=== PATIENT | female | born 1970 | race Caucasian/White ===

== ENCOUNTER 2019-04-05 10:00 | Observation (INO) | payer SELFPAY ==
[2019-04-05] MEDS ORDERED: Zofran 4 MG/2 ML VIAL IV ONE ×2 (10:39→12:14)
[2019-04-05] MEDS ORDERED: MORPHINE SULFATE 4 MG INJ IV ONE ×2 (10:39→12:13)
[2019-04-05] MEDS ORDERED: Sodium Chloride 0.9% 1000 ML 1,000 ML IV STA (10:39)
[2019-04-05] MEDS ORDERED: Sodium Chloride 0.9% 1000 ML 1,000 ML ONE (10:44)
[2019-04-05] MEDS ORDERED: MORPHINE SULFATE 4 MG INJ ONE ×2 (10:44→12:19)
[2019-04-05] MEDS ORDERED: Zofran 4 MG/2 ML VIAL ONE ×2 (10:44→12:19)
[2019-04-05 11:07] LABS: Appearance CLEAR (CLEAR); Bacteria FEW /HPF (NEGATIVE); Bilirubin NEGATIVE (NEGATIVE); Blood LARGE Ery/ul (0-5); Epithelial Cells FEW /HPF (FEW); Glucose NEGATIVE (NEGATIVE); Ketones NEGATIVE (NEGATIVE); Leukocyte Esterase TRACE (NEGATIVE); Mucus SLIGHT /HPF (NEGATIVE); Nitrite NEGATIVE (NEGATIVE); Protein,Urine Dip 30 (Negative); Specific Gravity 1.019 (1.005-1.025); Urobilinogen NEGATIVE mg/dL (0-1)
[2019-04-05 11:08] LABS: Absolute Neutrophil Ct (ANC) 7.85 (1.4-6.9); BASOPHIL % 0.3 % (0.0-0.4); Basophil (Absolute #) 0.03 (0-0.4); Eosinophil % 0.8 % (0.00-5.0); Eosinophil (Absolute #) 0.08 (0-0.5); Hematocrit 42.5 % (35-47); Hemoglobin 14.1 gm/dl (12.0-16.0); Lymphocyte (Absolute #) 1.63 (1.0-4.6); Lymphocytes % 16.4 % (24.0-44.0); Mean Cell Volume 89.3 fl (78-100); Mean Corpuscular Hemoglobin 29.6 pg (26-32); Mean Corpuscular Hgb Concent. 33.2 g/dl (32-36); Mean Platelet Volume 8.4 fl (7.5-11.0); Monocyte (Absolute #) 0.37 (0.0-1.3); Monocytes % 3.7 % (0.0-12.0); Neutrophil % 78.8 % (36.0-66.0); Platelet Count 302 K/mm3 (150-450); Red Blood Count 4.76 M/mm3 (4.1-5.4)
--- NOTE | 2019-04-05 11:08 | ERPHSYRPT ---
- History of Present Illness Time Seen by Provider: 04/05/19 10:22 Historian: patient Exam Limitations: no limitations Patient Subjective Stated Complaint: pt here for diffuse abd pain, she states she has hx of a gallstone. she has not seen a surgeon for this problem. no fever , n/v Triage Nursing Assessment: pt alert, resp easy, skin w/d/p.abd soft, walked in holding stomach Physician History: Patient is a 49-year-old female who presents to our ED with epigastric and right upper quadrant pain that occurred this morning. Pain described as an ache that radiates across her epigastrium. Pain is moderate in intensity. No specific worsening or improving factors. No associated trauma. No fever. Positive nausea and vomiting. Emesis is nonbloody nonbilious. Timing/Duration: today Activities at Onset: none Quality: aching Abdominal Pain Onset Location: RUQ, LUQ, epigastric Pain Radiation: epigastric Severity of Pain-Max: moderate Severity of Pain-Current: moderate Allergies/Adverse Reactions: No Known Drug Allergies Allergy (Unverified 04/05/19 10:16) Home Medications: No Reportable Medications [No Reported Medications] 04/05/19 [History] Hx Influenza Vaccination/Date Given: Yes Hx Pneumococcal Vaccination/Date Given: No Immunizations Up to Date: Yes - Review of Systems Constitutional: No Fever, No Chills Eyes: No Symptoms Ears, Nose, & Throat: No Symptoms Respiratory: No Cough, No Dyspnea Cardiac: No Chest Pain, No Edema, No Syncope Abdominal/Gastrointestinal: Abdominal Pain, Nausea, Vomiting, No Diarrhea, No Hematemesis Genitourinary Symptoms: No Dysuria Musculoskeletal: No Back Pain, No Neck Pain Skin: No Rash Neurological: No Dizziness, No Focal Weakness, No Sensory Changes Psychological: No Symptoms Endocrine: No Symptoms Hematologic/Lymphatic: No Symptoms Immunological/Allergic: No Symptoms All Other Systems: Reviewed and Negative - Past Medical History Pertinent Past Medical History: Yes Other Medical History: gallstone - Past Surgical History Past Surgical History: Yes Female Surgical History: Section - Social History Smoking Status: Never smoker Exposure to second hand smoke: No Drug Use: none Patient Lives Alone: No - Female History Hx Last Menstrual Period: now Hx Now: No - Nursing Vital Signs Nursing Vital Signs: Initial Vital Signs Temperature 97.0 F 04/05/19 10:12 Pulse Rate 78 04/05/19 10:12 Respiratory Rate 18 04/05/19 10:12 Blood Pressure 146/85 04/05/19 10:12 O2 Sat by Pulse Oximetry 98 04/05/19 10:12 Pain Scale Pain Intensity 6 - Physical Exam General Appearance: no apparent distress, alert Eye Exam: PERRL/EOMI, eyes nml inspection Ears, Nose, Throat Exam: normal ENT inspection, pharynx normal, moist mucous membranes Neck Exam: normal inspection, non-tender, supple, full range of motion Respiratory Exam: normal breath sounds, lungs clear, No respiratory distress Cardiovascular Exam: regular rate/rhythm, normal heart sounds Gastrointestinal/Abdomen Exam: soft, tenderness, No mass, No pulsatile mass, No rebound, No organomegaly, No splenomegaly Pelvic Exam: not done Back Exam: normal inspection, normal range of motion, No CVA tenderness, No vertebral tenderness Extremity Exam: normal inspection, normal range of motion, pelvis stable Neurologic Exam: alert, oriented x 3, cooperative, normal mood/affect, nml cerebellar function, sensation nml, No motor deficits Skin Exam: normal color, warm, dry Lymphatic Exam: adenopathy SpO2 Interpretation: normal SpO2: 97 O2 Delivery: Room Air - Course Nursing assessment & vital signs reviewed: Yes EKG Interpreted by Me: RATE, Left [place] Deviation, NORMAL INTERVALS - Radiology Ultrasound Exam Gallbladder Ultrasound: tele radiology report, negative Ordered Tests: Active Orders 24 hr Category Date Time Status Up With Assistance ROUTINE Activity 04/05/19 15:58 Active Code Status Order ROUTINE Care 04/05/19 15:58 Active EKG-ER Only STAT Care 04/05/19 10:39 Completed IV Care Q6H Care 04/05/19 15:58 Active IV Insertion STAT Care 04/05/19 10:[address] in Observation ROUTINE Care 04/05/19 15:58 Active Clear Liquid Diet 04/05/19 Dinner Completed ABDOMEN AND PELVIS W CONTRAST [CT] Stat Exams 04/05/19 10:40 Completed GALLBLADDER [US] Stat Exams 04/05/19 10:40 Completed CBC W DIFF AM.LAB Lab 04/06/19 05:06 Completed CBC W DIFF Stat Lab 04/05/19 10:55 Completed CMP AM.LAB Lab 04/06/19 05:06 Completed CMP Stat Lab 04/05/19 10:55 Completed CULTURE,URINE Stat Lab 04/05/19 10:43 Received LIPASE Stat Lab 04/05/19 10:55 Completed TROPONIN Q3H Lab 04/05/19 10:55 Completed TROPONIN Q3H Lab 04/05/19 13:40 Completed TROPONIN Q3H Lab 04/05/19 17:45 Completed TROPONIN Q3H Lab 04/05/19 20:06 Completed TROPONIN Q3H Lab 04/05/19 23:09 Completed UA W/RFX UR CULTURE Stat Lab 04/05/19 10:43 Completed Medication Summary Generic Name Dose Route Start Last Admin Trade Name Freq PRN Reason Stop Dose Admin Sodium Chloride 1,000 mls @ 100 mls/hr 04/05/19 15:58 04/06/19 02:40 Sodium Chloride 0.9% 1000 Ml IV 05/05/19 15:57 100 mls/hr .Q10H MONA Administration Morphine Sulfate 4 mg 04/05/19 15:58 Morphine Sulfate 4 Mg Inj IV 04/10/19 15:57 Q4H PRN PRN PAIN Ondansetron HCl 4 mg 04/05/19 17:24 Zofran 4 Mg/2 Ml Vial IV 05/05/19 17:23 Q4H PRN PRN NAUSEA/VOMITING Pantoprazole Sodium 40 mg 04/06/19 10:00 Protonix 40 Mg Iv IV 05/06/19 09:59 Q24H10 MONA Promethazine HCl 12.5 mg 04/05/19 17:23 04/05/19 18:46 Phenergan 25 Mg Inj IV 05/05/19 17:22 12.5 mg Q6H PRN PRN Administration NAUSEA/VOMITING Discontinued Medications Generic Name Dose Route Start Last Admin Trade Name Freq PRN Reason Stop Dose Admin Hydromorphone HCl 1 mg 04/05/19 14:12 04/05/19 14:45 Hydromorphone 1 Mg/Ml Ampule IV 04/05/19 14:13 1 mg STAT ONE Administration Hydromorphone HCl Confirm 04/05/19 14:38 Hydromorphone 1 Mg/Ml Ampule Administered 04/05/19 14:39 Dose 1 mg .ROUTE .STK-MED ONE Sodium Chloride 1,000 mls @ 999 mls/hr 04/05/19 10:39 04/05/19 12:55 Sodium Chloride 0.9% 1000 Ml IV 04/05/19 11:39 Infused .Q1H1M STA Infusion Sodium Chloride Confirm 04/05/19 10:44 Sodium Chloride 0.9% 1000 Ml Administered 04/05/19 10:45 Dose 1,000 mls @ ud .ROUTE .STK-MED ONE Metoclopramide HCl 10 mg 04/05/19 14:12 04/05/19 14:45 Reglan 10 Mg/2 Ml IV 04/05/19 14:13 10 mg STAT ONE Administration Metoclopramide HCl Confirm 04/05/19 14:39 Reglan 10 Mg/2 Ml Administered 04/05/19 14:40 Dose 10 mg .ROUTE .STK-MED ONE Morphine Sulfate 4 mg 04/05/19 10:39 04/05/19 10:47 Morphine Sulfate 4 Mg Inj IV 04/05/19 10:40 4 mg STAT ONE Administration Morphine Sulfate Confirm 04/05/19 10:44 Morphine Sulfate 4 Mg Inj Administered 04/05/19 10:45 Dose 4 mg .ROUTE .STK-MED ONE Morphine Sulfate 4 mg 04/05/19 12:13 04/05/19 12:23 Morphine Sulfate 4 Mg Inj IV 04/05/19 12:14 4 mg STAT ONE Administration Morphine Sulfate Confirm 04/05/19 12:19 Morphine Sulfate 4 Mg Inj Administered 04/05/19 12:20 Dose 4 mg .ROUTE .STK-MED ONE Ondansetron HCl 4 mg 04/05/19 10:39 04/05/19 10:47 Zofran 4 Mg/2 Ml Vial IV 04/05/19 10:40 4 mg STAT ONE Administration Ondansetron HCl Confirm 04/05/19 10:44 Zofran 4 Mg/2 Ml Vial Administered 04/05/19 10:45 Dose 4 mg .ROUTE .STK-MED ONE Ondansetron HCl 4 mg 04/05/19 12:14 04/05/19 12:21 Zofran 4 Mg/2 Ml Vial IV 04/05/19 12:15 4 mg STAT ONE Administration Ondansetron HCl Confirm 04/05/19 12:19 Zofran 4 Mg/2 Ml Vial Administered 04/05/19 12:20 Dose 4 mg .ROUTE .STK-MED ONE Pantoprazole Sodium 40 mg 04/05/19 14:52 04/05/19 15:00 Protonix 40 Mg Iv IV 04/05/19 14:53 40 mg STAT ONE Administration Pantoprazole Sodium Confirm 04/05/19 14:57 Protonix 40 Mg Iv Administered 04/05/19 14:58 Dose 40 mg IV .STK-MED ONE Lab/Rad Data: Laboratory Result Diagrams 04/05/19 10:55 04/05/19 10:55 Laboratory Results 04/05/19 04/05/19 04/05/19 Range/Units 13:40 10:55 10:55 WBC (4.0-10.5) K/mm3 RBC (4.1-5.4) M/mm3 Hgb (12.0-16.0) gm/dl Hct (35-47) % MCV (78-100) fl MCH (26-32) pg MCHC (32-36) g/dl RDW (11.5-14.0) % Plt Count (150-450) K/mm3 MPV (7.5-11.0) fl Gran % (36.0-66.0) % Eos # (Auto) (0-0.5) Absolute Lymphs (auto) (1.0-4.6) Absolute Monos (auto) (0.0-1.3) Lymphocytes % (24.0-44.0) % Monocytes % (0.0-12.0) % Eosinophils % (0.00-5.0) % Basophils % (0.0-0.4) % Absolute Granulocytes (1.4-6.9) Basophils # (0-0.4) Sodium 141 (137-145) mmol/L Potassium 4.1 (3.5-5.1) mmol/L Chloride 103 (98-107) mmol/L Carbon Dioxide 31 H (22-30) mmol/L Anion Gap 11.2 (5-15) MEQ/L BUN 18 H (7-17) mg/dL Creatinine 0.55 (0.52-1.04) mg/dL Estimated GFR > 60.0 ML/MIN Glucose 105 (74-106) mg/dL Calcium 9.5 (8.4-10.2) mg/dL Total Bilirubin 0.80 (0.2-1.3) mg/dL AST 20 (14-36) U/L ALT 11 (0-35) U/L Alkaline Phosphatase 88 (38-126) U/L Troponin I < 0.012 < 0.012 (0.000-0.034) ng/mL Serum Total Protein 8.6 H (6.3-8.2) g/dL Albumin 4.6 (3.5-5.0) g/dL Lipase 21 L (23-300) U/L Urine Color (YELLOW) Urine Appearance (CLEAR) Urine pH (5-6) Ur Specific [place] (1.005-1.025) Urine Protein (Negative) Urine Ketones (NEGATIVE) Urine Blood (0-5) [place]/ul Urine Nitrite (NEGATIVE) Urine Bilirubin (NEGATIVE) Urine Urobilinogen (0-1) mg/dL Ur Leukocyte Esterase (NEGATIVE) Urine WBC (Auto) (0-5) /HPF Urine RBC (Auto) (0-2) /HPF U Epithel Cells (Auto) (FEW) /HPF Urine Bacteria (Auto) (NEGATIVE) /HPF Urine Mucus (Auto) (NEGATIVE) /HPF Urine Culture Reflexed (NO) Urine Glucose (NEGATIVE) mg/dL 04/05/19 04/05/19 Range/Units 10:55 10:43 WBC 10.0 (4.0-10.5) K/mm3 RBC 4.76 (4.1-5.4) M/mm3 Hgb 14.1 (12.0-16.0) gm/dl Hct 42.5 (35-47) % MCV 89.3 (78-100) fl MCH 29.6 (26-32) pg MCHC 33.2 (32-36) g/dl RDW 14.0 (11.5-14.0) % Plt Count 302 (150-450) K/mm3 MPV 8.4 (7.5-11.0) fl Gran % 78.8 H (36.0-66.0) % Eos # (Auto) 0.08 (0-0.5) Absolute Lymphs (auto) 1.63 (1.0-4.6) Absolute Monos (auto) 0.37 (0.0-1.3) Lymphocytes % 16.4 L (24.0-44.0) % Monocytes % 3.7 (0.0-12.0) % Eosinophils % 0.8 (0.00-5.0) % Basophils % 0.3 (0.0-0.4) % Absolute Granulocytes 7.85 H (1.4-6.9) Basophils # 0.03 (0-0.4) Sodium (137-145) mmol/L Potassium (3.5-5.1) mmol/L Chloride (98-107) mmol/L Carbon Dioxide (22-30) mmol/L Anion Gap (5-15) MEQ/L BUN (7-17) mg/dL Creatinine (0.52-1.04) mg/dL Estimated GFR ML/MIN Glucose (74-106) mg/dL Calcium (8.4-10.2) mg/dL Total Bilirubin (0.2-1.3) mg/dL AST (14-36) U/L ALT (0-35) U/L Alkaline Phosphatase (38-126) U/L Troponin I (0.000-0.034) ng/mL Serum Total Protein (6.3-8.2) g/dL Albumin (3.5-5.0) g/dL Lipase (23-300) U/L Urine Color SHERIE (YELLOW) Urine Appearance CLEAR (CLEAR) Urine pH 7.0 (5-6) Ur Specific [place] 1.019 (1.005-1.025) Urine Protein 30 (Negative) Urine Ketones NEGATIVE (NEGATIVE) Urine Blood LARGE (0-5) [place]/ul Urine Nitrite NEGATIVE (NEGATIVE) Urine Bilirubin NEGATIVE (NEGATIVE) Urine Urobilinogen NEGATIVE (0-1) mg/dL Ur Leukocyte Esterase TRACE (NEGATIVE) Urine WBC (Auto) 3-5 (0-5) /HPF Urine RBC (Auto) >101 (0-2) /HPF U Epithel Cells (Auto) FEW (FEW) /HPF Urine Bacteria (Auto) FEW (NEGATIVE) /HPF Urine Mucus (Auto) SLIGHT (NEGATIVE) /HPF Urine Culture Reflexed YES (NO) Urine Glucose NEGATIVE (NEGATIVE) mg/dL - Progress Counseled pt/family regarding: lab results, diagnosis, rad results - Departure Departure Disposition: Observation Clinical Impression: Hematuria Condition: Stable Critical Care Time: No
[2019-04-05 11:13] LABS: RBC >101 /HPF (0-2)
--- NOTE | 2019-04-05 11:13 | XRAY ---
Indication: Pancreatitis. Two-dimensional gallbladder sonogram performed. Comparison: None Gallbladder normally distended without gallstones, wall thickening, or pericholecystic fluid. Common bile duct measures 3.7 mm. No intrahepatic biliary distention. Remaining visualized portions of the liver, pancreas, and right kidney appear sonographically unremarkable. Right kidney measures 11.9 cm in length. No ascites. Impression: Negative gallbladder sonogram.
[2019-04-05 11:16] LABS: ALBUMIN 4.6 g/dL (3.5-5.0); ALKALINE PHOSPHATASE 88 U/L (38-126); ANION GAP 11.2 MEQ/L (5-15); BLOOD UREA NITROGEN 18 mg/dL (7-17); CHLORIDE 103 mmol/L (98-107); Calcium 9.5 mg/dL (8.4-10.2); Carbon Dioxide 31 mmol/L (22-30); Creatinine 1 0.55 mg/dL (0.52-1.04); Glucose 105 mg/dL (74-106); LIPASE 21 U/L (23-300); Potassium 4.1 mmol/L (3.5-5.1); SGOT/AST 20 U/L (14-36); SGPT/ALT 11 U/L (0-35); SODIUM 141 mmol/L (137-145); Total Protein 8.6 g/dL (6.3-8.2)
--- NOTE | 2019-04-05 12:06 | XRAY ---
Indication: Abdomen pain, nausea, and vomiting. Pancreatitis. Multiple contiguous axial images obtained through the abdomen and pelvis using 80 cc Isovue 370 contrast only. Comparison: None Lung bases are clear. Heart is not enlarged. Noncontrasted stomach and bowel loops appear nonobstructed. Normal appendix. No free fluid/air. Left mid abdomen demonstrates tiny mesenteric nodes with minimal mesenteric stranding favoring mesenteric adenitis. 2.2 cm right ovary cyst. Tiny calcified splenic granulomas. Remaining liver, gallbladder, pancreas, spleen, adrenal glands, kidneys, ureters, bladder, uterus, and aorta appear normal in CT appearance and attenuation. No pathologic retroperitoneal lymphadenopathy. Osseous structures intact. Impression: 1. Left midabdomen tiny mesenteric nodes with minimal stranding favoring mesenteric adenitis. 2. 2.2 cm right ovary cyst and evidence for old granulomatous disease. 3. Remaining CT abdomen/pelvis with contrast exam is negative.
[2019-04-05] MEDS ORDERED: Reglan 10 MG/2 ML IV ONE (14:12)
[2019-04-05] MEDS ORDERED: Hydromorphone 1 mg/ml Ampule IV ONE (14:12)
[2019-04-05] MEDS ORDERED: Hydromorphone 1 mg/ml Ampule ONE (14:38)
[2019-04-05] MEDS ORDERED: Reglan 10 MG/2 ML ONE (14:39)
[2019-04-05] MEDS ORDERED: PROTONIX 40 MG IV IV ONE ×2 (14:52→14:57)
[2019-04-05] MEDS ORDERED: MORPHINE SULFATE 4 MG INJ IV PRN (15:58)
[2019-04-05] MEDS ORDERED: Phenergan 25 MG INJ IV PRN (17:23)
[2019-04-05] MEDS ORDERED: Zofran 4 MG/2 ML VIAL IV PRN (17:24)
[2019-04-05] MEDS: Sodium Chloride 0.9% 1000 ML 1,000 ML IV SCH (17:26)
--- NOTE | 2019-04-05 17:52 | PCM.HP ---
History of Present Illness - Chief Complaint Chief Complaint: abd pain. n/v History of Present Illness: is a 49 year old female pt of [facility] in [place] who came to ER with epigastric pain. She's been having that pain for 2 months, at 2 /10, radiates to umbilicus, but last night it got to 10/10 and she had vomiting (of food and mucous). Her last po intake was 4 pm. Also c/o cough x 1 wk. no fever. - Review of Systems Constitutional: No Fever Respiratory: Cough Abdominal/Gastrointestinal: Abdominal Pain, Nausea, Vomiting, Appetite Changes Psychological: No Suicidal Ideations, No Homicidal Ideations All Other Systems: Reviewed and Negative Medications & Allergies Home Medications: Home Medication List No Reportable Medications [No Reported Medications] 04/05/19 [History Confirmed 04/05/19] Allergies/Adverse Reactions: Allergies Allergy/AdvReac Type Severity Reaction Status Date / Time No Known Drug Allergies Allergy Unverified 04/05/19 10:16 - Past Medical History Past Medical History: Yes Neurological History: No Pertinent History ENT History: No Pertinent History Cardiac History: Other Respiratory History: No Pertinent History Endocrine Medical History: No Pertinent History Musculoskelatal History: Arthritis GI Medical History: Gallbladder Disease, Irritable Bowel History: No Pertinent History Pyscho-Social History: No Pertinent History Reproductive Disorders: No Pertinent History Comment: gallstone. heart murmer - Female History Hx Last Menstrual Period: now Are you now?: No - Past Surgical History Past Surgical History: Yes Neuro Surgical History: No Pertinent History Cardiac History: No Pertinent History Respiratory Surgery: No Pertinent History GI Surgical History: No Pertinent History Genitourinary Surgical Hx: No Pertinent History Musculskeletal Surgical Hx: No Pertinent History, Amputation Female Surgical History: Section - Social History Smoking Status: Former smoker Exposure to second hand smoke: No Alcohol: None Drug Use: none - Physical Exam Vital Signs: Vital Signs - 24 hr Temp Pulse Resp BP Pulse Ox 04/05/19 16:37 97.5 F 70 20 145/70 96 04/05/19 15:56 97.5 F 70 20 145/70 96 04/05/19 14:59 98.2 F 70 18 111/72 97 04/05/19 13:13 97.8 F 67 18 135/83 98 04/05/19 11:22 97 04/05/19 10:52 73 20 130/67 97 04/05/19 10:12 97.0 F 78 18 146/85 98 General Appearance: no apparent distress, alert Neurologic Exam: oriented x 3, cooperative Eye Exam: eyes nml inspection Ears, Nose, Throat Exam: moist mucous membranes Neck Exam: normal inspection, non-tender, No lymphadenopathy Respiratory Exam: normal breath sounds, lungs clear, No crackles/rales, No rhonchi, No wheezing Cardiovascular Exam: regular rate/rhythm, normal heart sounds, No murmur Gastrointestinal/Abdomen Exam: soft, tenderness (epigastrum), distention, No normal bowel sounds (hypoactive but present), No mass, No guarding, No rebound Extremity Exam: normal inspection, No pedal edema, No swelling Skin Exam: normal color, warm, dry, No rash Results - Labs Lab/Micro Results: Lab Results-Last 24 Hours 04/05/19 04/05/19 04/05/19 Range/Units 10:43 10:55 10:55 WBC 10.0 (4.0-10.5) K/mm3 RBC 4.76 (4.1-5.4) M/mm3 Hgb 14.1 (12.0-16.0) gm/dl Hct 42.5 (35-47) % MCV 89.3 (78-100) fl MCH 29.6 (26-32) pg MCHC 33.2 (32-36) g/dl RDW 14.0 (11.5-14.0) % Plt Count 302 (150-450) K/mm3 MPV 8.4 (7.5-11.0) fl Gran % 78.8 H (36.0-66.0) % Eos # (Auto) 0.08 (0-0.5) Absolute Lymphs (auto) 1.63 (1.0-4.6) Absolute Monos (auto) 0.37 (0.0-1.3) Lymphocytes % 16.4 L (24.0-44.0) % Monocytes % 3.7 (0.0-12.0) % Eosinophils % 0.8 (0.00-5.0) % Basophils % 0.3 (0.0-0.4) % Absolute Granulocytes 7.85 H (1.4-6.9) Basophils # 0.03 (0-0.4) Sodium 141 (137-145) mmol/L Potassium 4.1 (3.5-5.1) mmol/L Chloride 103 (98-107) mmol/L Carbon Dioxide 31 H (22-30) mmol/L Anion Gap 11.2 (5-15) MEQ/L BUN 18 H (7-17) mg/dL Creatinine 0.55 (0.52-1.04) mg/dL Estimated GFR > 60.0 ML/MIN Glucose 105 (74-106) mg/dL Calcium 9.5 (8.4-10.2) mg/dL Total Bilirubin 0.80 (0.2-1.3) mg/dL AST 20 (14-36) U/L ALT 11 (0-35) U/L Alkaline Phosphatase 88 (38-126) U/L Troponin I (0.000-0.034) ng/mL Serum Total Protein 8.6 H (6.3-8.2) g/dL Albumin 4.6 (3.5-5.0) g/dL Lipase 21 L (23-300) U/L Urine Color SHERIE (YELLOW) Urine Appearance CLEAR (CLEAR) Urine pH 7.0 (5-6) Ur Specific [place] 1.019 (1.005-1.025) Urine Protein 30 (Negative) Urine Ketones NEGATIVE (NEGATIVE) Urine Blood LARGE (0-5) [place]/ul Urine Nitrite NEGATIVE (NEGATIVE) Urine Bilirubin NEGATIVE (NEGATIVE) Urine Urobilinogen NEGATIVE (0-1) mg/dL Ur Leukocyte Esterase TRACE (NEGATIVE) Urine WBC (Auto) 3-5 (0-5) /HPF Urine RBC (Auto) >101 (0-2) /HPF U Epithel Cells (Auto) FEW (FEW) /HPF Urine Bacteria (Auto) FEW (NEGATIVE) /HPF Urine Mucus (Auto) SLIGHT (NEGATIVE) /HPF Urine Culture Reflexed YES (NO) Urine Glucose NEGATIVE (NEGATIVE) mg/dL 04/05/19 04/05/19 Range/Units 10:55 13:40 WBC (4.0-10.5) K/mm3 RBC (4.1-5.4) M/mm3 Hgb (12.0-16.0) gm/dl Hct (35-47) % MCV (78-100) fl MCH (26-32) pg MCHC (32-36) g/dl RDW (11.5-14.0) % Plt Count (150-450) K/mm3 MPV (7.5-11.0) fl Gran % (36.0-66.0) % Eos # (Auto) (0-0.5) Absolute Lymphs (auto) (1.0-4.6) Absolute Monos (auto) (0.0-1.3) Lymphocytes % (24.0-44.0) % Monocytes % (0.0-12.0) % Eosinophils % (0.00-5.0) % Basophils % (0.0-0.4) % Absolute Granulocytes (1.4-6.9) Basophils # (0-0.4) Sodium (137-145) mmol/L Potassium (3.5-5.1) mmol/L Chloride (98-107) mmol/L Carbon Dioxide (22-30) mmol/L Anion Gap (5-15) MEQ/L BUN (7-17) mg/dL Creatinine (0.52-1.04) mg/dL Estimated GFR ML/MIN Glucose (74-106) mg/dL Calcium (8.4-10.2) mg/dL Total Bilirubin (0.2-1.3) mg/dL AST (14-36) U/L ALT (0-35) U/L Alkaline Phosphatase (38-126) U/L Troponin I < 0.012 < 0.012 (0.000-0.034) ng/mL Serum Total Protein (6.3-8.2) g/dL Albumin (3.5-5.0) g/dL Lipase (23-300) U/L Urine Color (YELLOW) Urine Appearance (CLEAR) Urine pH (5-6) Ur Specific [place] (1.005-1.025) Urine Protein (Negative) Urine Ketones (NEGATIVE) Urine Blood (0-5) [place]/ul Urine Nitrite (NEGATIVE) Urine Bilirubin (NEGATIVE) Urine Urobilinogen (0-1) mg/dL Ur Leukocyte Esterase (NEGATIVE) Urine WBC (Auto) (0-5) /HPF Urine RBC (Auto) (0-2) /HPF U Epithel Cells (Auto) (FEW) /HPF Urine Bacteria (Auto) (NEGATIVE) /HPF Urine Mucus (Auto) (NEGATIVE) /HPF Urine Culture Reflexed (NO) Urine Glucose (NEGATIVE) mg/dL - Radiology Impressions Radiology Exams & Impressions: Radiology Procedures Category Date Time Status ABDOMEN AND PELVIS W CONTRAST [CT] Stat Exams 04/05/19 10:40 Completed GALLBLADDER [US] Stat Exams 04/05/19 10:40 Completed Assessment/Plan (1) Abdominal pain Current Visit: Yes Status: Acute Qualifiers: Abdominal location: epigastric Qualified Code(s): R10.13 - Epigastric pain Assessment & Plan: Ongoing x 2 mo and worsened yesterday. Was taking TUMS with some relief. Now on morphine, anti-emetics, and protonix IV. Surgery consult for possible EGD in the morning. Code(s): R10.9 - UNSPECIFIED ABDOMINAL PAIN (2) Cough Current Visit: Yes Status: Acute Assessment & Plan: will check for influenza Code(s): R05 - COUGH (3) Hematuria Current Visit: Yes Status: Acute Assessment & Plan: pt is on menses Code(s): R31.9 - HEMATURIA, UNSPECIFIED
[2019-04-05 18:55] LABS: INFLUENZA A NEGATIVE (NEGATIVE); INFLUENZA B NEGATIVE (NEGATIVE); RESPIRATORY SYNCTIAL VIRUS NEGATIVE (Negative)
[2019-04-06] MEDS: Sodium Chloride 0.9% 1000 ML 1,000 ML IV SCH (02:40)
[2019-04-06 05:21] LABS: Absolute Neutrophil Ct (ANC) 9.14 (1.4-6.9); BASOPHIL % 0.1 % (0.0-0.4); Basophil (Absolute #) 0.02 (0-0.4); Eosinophil % 0.7 % (0.00-5.0); Eosinophil (Absolute #) 0.09 (0-0.5); Hematocrit 36.4 % (35-47); Hemoglobin 11.8 gm/dl (12.0-16.0); Lymphocyte (Absolute #) 3.39 (1.0-4.6); Lymphocytes % 24.8 % (24.0-44.0); Mean Cell Volume 91.7 fl (78-100); Mean Corpuscular Hemoglobin 29.7 pg (26-32); Mean Corpuscular Hgb Concent. 32.4 g/dl (32-36); Mean Platelet Volume 8.4 fl (7.5-11.0); Monocyte (Absolute #) 1.01 (0.0-1.3); Monocytes % 7.4 % (0.0-12.0); Platelet Count 271 K/mm3 (150-450); Red Blood Count 3.97 M/mm3 (4.1-5.4); Red Cell Distribution Width 14.1 % (11.5-14.0); White Blood Count 13.7 K/mm3 (4.0-10.5)
[2019-04-06 06:08] LABS: ALBUMIN 3.7 g/dL (3.5-5.0); ALKALINE PHOSPHATASE 66 U/L (38-126); ANION GAP 5.9 MEQ/L (5-15); BLOOD UREA NITROGEN 15 mg/dL (7-17); CHLORIDE 105 mmol/L (98-107); Calcium 8.4 mg/dL (8.4-10.2); Carbon Dioxide 30 mmol/L (22-30); Creatinine 1 0.55 mg/dL (0.52-1.04); Glucose 93 mg/dL (74-106); Potassium 3.5 mmol/L (3.5-5.1); SGOT/AST 18 U/L (14-36); SGPT/ALT 9 U/L (0-35); SODIUM 138 mmol/L (137-145)
--- NOTE | 2019-04-06 08:43 | PCM.DS ---
Discharge Summary Date of Admission: 04/05/19 15:50 Admitting Physician: DEBRA LEWIS Consults: Consults on Case 04/05/19 17:46 Consult Surgery ROUTINE 04/05/19 17:54 Consult Surgery ROUTINE Primary Care Provider: PETRONA FRITCH Allergies Allergies No Known Drug Allergies Allergy (Unverified 04/05/19 10:16) Hospital Summary - Hospital Course Hospital Course: Pt is 49 yo female pt of Petrona Belden in [place] who was admitted through ER wt 11/30 epigastric pain. Was started on IV PPI and pain meds and antiemetics. She had had pain x 2 months, but it was suddenly exacerbated yesterday. We set up EGD for this morning, but today she denies any epigastric pain or tenderness. Will feed pt, if she can tolerate po will send her home on oral PPI. F/u in 1 wk. - Vitals & Intake/Output Vital Signs: Vital Signs Temperature 98.6 F 04/06/19 07:27 Pulse Rate 76 04/06/19 07:27 Respiratory Rate 16 04/06/19 07:27 Blood Pressure 144/76 04/06/19 07:27 O2 Sat by Pulse Oximetry 97 04/06/19 07:43 Intake & Output: Intake & Output 04/03/19 04/04/19 04/05/19 04/06/19 11:59 11:59 11:59 11:59 Intake Total 1143 Balance 1143 Weight 77.111 kg 91.8 kg - Lab Result Diagrams: 04/06/19 05:06 04/06/19 05:06 Lab Results-Last 24 Hrs: Lab Results-Last 24 Hours 04/05/19 04/05/19 04/05/19 Range/Units 10:43 10:55 10:55 WBC 10.0 (4.0-10.5) K/mm3 RBC 4.76 (4.1-5.4) M/mm3 Hgb 14.1 (12.0-16.0) gm/dl Hct 42.5 (35-47) % MCV 89.3 (78-100) fl MCH 29.6 (26-32) pg MCHC 33.2 (32-36) g/dl RDW 14.0 (11.5-14.0) % Plt Count 302 (150-450) K/mm3 MPV 8.4 (7.5-11.0) fl Gran % 78.8 H (36.0-66.0) % Eos # (Auto) 0.08 (0-0.5) Absolute Lymphs (auto) 1.63 (1.0-4.6) Absolute Monos (auto) 0.37 (0.0-1.3) Lymphocytes % 16.4 L (24.0-44.0) % Monocytes % 3.7 (0.0-12.0) % Eosinophils % 0.8 (0.00-5.0) % Basophils % 0.3 (0.0-0.4) % Absolute Granulocytes 7.85 H (1.4-6.9) Basophils # 0.03 (0-0.4) Sodium 141 (137-145) mmol/L Potassium 4.1 (3.5-5.1) mmol/L Chloride 103 (98-107) mmol/L Carbon Dioxide 31 H (22-30) mmol/L Anion Gap 11.2 (5-15) MEQ/L BUN 18 H (7-17) mg/dL Creatinine 0.55 (0.52-1.04) mg/dL Estimated GFR > 60.0 ML/MIN Glucose 105 (74-106) mg/dL Calcium 9.5 (8.4-10.2) mg/dL Total Bilirubin 0.80 (0.2-1.3) mg/dL AST 20 (14-36) U/L ALT 11 (0-35) U/L Alkaline Phosphatase 88 (38-126) U/L Troponin I (0.000-0.034) ng/mL Serum Total Protein 8.6 H (6.3-8.2) g/dL Albumin 4.6 (3.5-5.0) g/dL Lipase 21 L (23-300) U/L Urine Color SHERIE (YELLOW) Urine Appearance CLEAR (CLEAR) Urine pH 7.0 (5-6) Ur Specific Deputy 1.019 (1.005-1.025) Urine Protein 30 (Negative) Urine Ketones NEGATIVE (NEGATIVE) Urine Blood LARGE (0-5) Hayden/ul Urine Nitrite NEGATIVE (NEGATIVE) Urine Bilirubin NEGATIVE (NEGATIVE) Urine Urobilinogen NEGATIVE (0-1) mg/dL Ur Leukocyte Esterase TRACE (NEGATIVE) Urine WBC (Auto) 3-5 (0-5) /HPF Urine RBC (Auto) >101 (0-2) /HPF U Epithel Cells (Auto) FEW (FEW) /HPF Urine Bacteria (Auto) FEW (NEGATIVE) /HPF Urine Mucus (Auto) SLIGHT (NEGATIVE) /HPF Urine Culture Reflexed YES (NO) Urine Glucose NEGATIVE (NEGATIVE) mg/dL Influenza Type A Ag (NEGATIVE) Influenza Type B Ag (NEGATIVE) RSV (PCR) (Negative) 04/05/19 04/05/19 04/05/19 Range/Units 10:55 13:40 17:45 WBC (4.0-10.5) K/mm3 RBC (4.1-5.4) M/mm3 Hgb (12.0-16.0) gm/dl Hct (35-47) % MCV (78-100) fl MCH (26-32) pg MCHC (32-36) g/dl RDW (11.5-14.0) % Plt Count (150-450) K/mm3 MPV (7.5-11.0) fl Gran % (36.0-66.0) % Eos # (Auto) (0-0.5) Absolute Lymphs (auto) (1.0-4.6) Absolute Monos (auto) (0.0-1.3) Lymphocytes % (24.0-44.0) % Monocytes % (0.0-12.0) % Eosinophils % (0.00-5.0) % Basophils % (0.0-0.4) % Absolute Granulocytes (1.4-6.9) Basophils # (0-0.4) Sodium (137-145) mmol/L Potassium (3.5-5.1) mmol/L Chloride (98-107) mmol/L Carbon Dioxide (22-30) mmol/L Anion Gap (5-15) MEQ/L BUN (7-17) mg/dL Creatinine (0.52-1.04) mg/dL Estimated GFR ML/MIN Glucose (74-106) mg/dL Calcium (8.4-10.2) mg/dL Total Bilirubin (0.2-1.3) mg/dL AST (14-36) U/L ALT (0-35) U/L Alkaline Phosphatase (38-126) U/L Troponin I < 0.012 < 0.012 < 0.012 (0.000-0.034) ng/mL Serum Total Protein (6.3-8.2) g/dL Albumin (3.5-5.0) g/dL Lipase (23-300) U/L Urine Color (YELLOW) Urine Appearance (CLEAR) Urine pH (5-6) Ur Specific Deputy (1.005-1.025) Urine Protein (Negative) Urine Ketones (NEGATIVE) Urine Blood (0-5) Hayden/ul Urine Nitrite (NEGATIVE) Urine Bilirubin (NEGATIVE) Urine Urobilinogen (0-1) mg/dL Ur Leukocyte Esterase (NEGATIVE) Urine WBC (Auto) (0-5) /HPF Urine RBC (Auto) (0-2) /HPF U Epithel Cells (Auto) (FEW) /HPF Urine Bacteria (Auto) (NEGATIVE) /HPF Urine Mucus (Auto) (NEGATIVE) /HPF Urine Culture Reflexed (NO) Urine Glucose (NEGATIVE) mg/dL Influenza Type A Ag (NEGATIVE) Influenza Type B Ag (NEGATIVE) RSV (PCR) (Negative) 04/05/19 04/05/19 04/05/19 Range/Units 18:15 20:06 23:09 WBC (4.0-10.5) K/mm3 RBC (4.1-5.4) M/mm3 Hgb (12.0-16.0) gm/dl Hct (35-47) % MCV (78-100) fl MCH (26-32) pg MCHC (32-36) g/dl RDW (11.5-14.0) % Plt Count (150-450) K/mm3 MPV (7.5-11.0) fl Gran % (36.0-66.0) % Eos # (Auto) (0-0.5) Absolute Lymphs (auto) (1.0-4.6) Absolute Monos (auto) (0.0-1.3) Lymphocytes % (24.0-44.0) % Monocytes % (0.0-12.0) % Eosinophils % (0.00-5.0) % Basophils % (0.0-0.4) % Absolute Granulocytes (1.4-6.9) Basophils # (0-0.4) Sodium (137-145) mmol/L Potassium (3.5-5.1) mmol/L Chloride (98-107) mmol/L Carbon Dioxide (22-30) mmol/L Anion Gap (5-15) MEQ/L BUN (7-17) mg/dL Creatinine (0.52-1.04) mg/dL Estimated GFR ML/MIN Glucose (74-106) mg/dL Calcium (8.4-10.2) mg/dL Total Bilirubin (0.2-1.3) mg/dL AST (14-36) U/L ALT (0-35) U/L Alkaline Phosphatase (38-126) U/L Troponin I < 0.012 < 0.012 (0.000-0.034) ng/mL Serum Total Protein (6.3-8.2) g/dL Albumin (3.5-5.0) g/dL Lipase (23-300) U/L Urine Color (YELLOW) Urine Appearance (CLEAR) Urine pH (5-6) Ur Specific Deputy (1.005-1.025) Urine Protein (Negative) Urine Ketones (NEGATIVE) Urine Blood (0-5) Hayden/ul Urine Nitrite (NEGATIVE) Urine Bilirubin (NEGATIVE) Urine Urobilinogen (0-1) mg/dL Ur Leukocyte Esterase (NEGATIVE) Urine WBC (Auto) (0-5) /HPF Urine RBC (Auto) (0-2) /HPF U Epithel Cells (Auto) (FEW) /HPF Urine Bacteria (Auto) (NEGATIVE) /HPF Urine Mucus (Auto) (NEGATIVE) /HPF Urine Culture Reflexed (NO) Urine Glucose (NEGATIVE) mg/dL Influenza Type A Ag NEGATIVE (NEGATIVE) Influenza Type B Ag NEGATIVE (NEGATIVE) RSV (PCR) NEGATIVE (Negative) 04/06/19 04/06/19 Range/Units 05:06 05:06 WBC 13.7 H (4.0-10.5) K/mm3 RBC 3.97 L (4.1-5.4) M/mm3 Hgb 11.8 L (12.0-16.0) gm/dl Hct 36.4 (35-47) % MCV 91.7 (78-100) fl MCH 29.7 (26-32) pg MCHC 32.4 (32-36) g/dl RDW 14.1 H (11.5-14.0) % Plt Count 271 (150-450) K/mm3 MPV 8.4 (7.5-11.0) fl Gran % 67.0 H (36.0-66.0) % Eos # (Auto) 0.09 (0-0.5) Absolute Lymphs (auto) 3.39 (1.0-4.6) Absolute Monos (auto) 1.01 (0.0-1.3) Lymphocytes % 24.8 (24.0-44.0) % Monocytes % 7.4 (0.0-12.0) % Eosinophils % 0.7 (0.00-5.0) % Basophils % 0.1 (0.0-0.4) % Absolute Granulocytes 9.14 H (1.4-6.9) Basophils # 0.02 (0-0.4) Sodium 138 (137-145) mmol/L Potassium 3.5 (3.5-5.1) mmol/L Chloride 105 (98-107) mmol/L Carbon Dioxide 30 (22-30) mmol/L Anion Gap 5.9 (5-15) MEQ/L BUN 15 (7-17) mg/dL Creatinine 0.55 (0.52-1.04) mg/dL Estimated GFR > 60.0 ML/MIN Glucose 93 (74-106) mg/dL Calcium 8.4 (8.4-10.2) mg/dL Total Bilirubin 0.90 (0.2-1.3) mg/dL AST 18 (14-36) U/L ALT 9 (0-35) U/L Alkaline Phosphatase 66 (38-126) U/L Troponin I (0.000-0.034) ng/mL Serum Total Protein 7.0 (6.3-8.2) g/dL Albumin 3.7 (3.5-5.0) g/dL Lipase (23-300) U/L Urine Color (YELLOW) Urine Appearance (CLEAR) Urine pH (5-6) Ur Specific Deputy (1.005-1.025) Urine Protein (Negative) Urine Ketones (NEGATIVE) Urine Blood (0-5) Hayden/ul Urine Nitrite (NEGATIVE) Urine Bilirubin (NEGATIVE) Urine Urobilinogen (0-1) mg/dL Ur Leukocyte Esterase (NEGATIVE) Urine WBC (Auto) (0-5) /HPF Urine RBC (Auto) (0-2) /HPF U Epithel Cells (Auto) (FEW) /HPF Urine Bacteria (Auto) (NEGATIVE) /HPF Urine Mucus (Auto) (NEGATIVE) /HPF Urine Culture Reflexed (NO) Urine Glucose (NEGATIVE) mg/dL Influenza Type A Ag (NEGATIVE) Influenza Type B Ag (NEGATIVE) RSV (PCR) (Negative) - Radiology Exams Ordered Rad Exams-Entire Visit: Radiology Procedures Category Date Time Status ABDOMEN AND PELVIS W CONTRAST [CT] Stat Exams 04/05/19 10:40 Completed GALLBLADDER [US] Stat Exams 04/05/19 10:40 Completed Discharge Exam General Appearance: no apparent distress, alert Neurologic Exam: oriented x 3, cooperative Eye Exam: eyes nml inspection Ears, Nose, Throat Exam: moist mucous membranes Neck Exam: normal inspection Respiratory Exam: normal breath sounds, lungs clear, No crackles/rales, No rhonchi, No wheezing Cardiovascular Exam: regular rate/rhythm, normal heart sounds, No murmur Gastrointestinal/Abdomen Exam: soft, normal bowel sounds, No tenderness, No distention, No mass, No guarding, No rebound Back Exam: normal inspection, No rash Extremity Exam: normal inspection, No pedal edema, No swelling Skin Exam: normal color, warm, dry, No rash Final Diagnosis/Problem List - Final Discharge Diagnosis/Problem (1) Abdominal pain Current Visit: Yes Status: Resolved Assessment & Plan: Resolved. May be gastritis - stay on PPI for at least 2-3 months Code(s): R10.9 - UNSPECIFIED ABDOMINAL PAIN (2) Cough Current Visit: Yes Status: Acute Assessment & Plan: flu neg, will check CXR prior to discharge. Code(s): R05 - COUGH (3) Hematuria Current Visit: Yes Status: Acute Code(s): R31.9 - HEMATURIA, UNSPECIFIED - Discharge Disposition: Home, Self-Care Condition: Stable Prescriptions: New Omeprazole 20 mg PO DAILY #37 capsule.dr Follow up with: MICHA COHEN [facility]CHNICIAN [Primary Care Provider] - 1 Week
--- NOTE | 2019-04-06 09:18 | XRAY ---
Indication: Cough. Comparison: None PA/lateral chest clear. Heart and mediastinal structures within normal limits. Bony thorax intact with minimal degenerative changes. Impression: Nonacute chest.
[2019-04-06] MEDS ORDERED: PROTONIX 40 MG IV IV SCH (10:00)
[2019-04-06 12:53] VITALS: BP 136/68; PULSE 68; O2SAT 96
== END 2019-04-06 12:40 | disposition home or self-care (01) ==
LOC: ED 10:00 → MED SURG 15:50
PROVIDERS: ADMIT Family Medicine; ATTEND Family Medicine
DX: R10.9 Unspecified abdominal pain (principal); R05 Cough; R31.9 Hematuria, unspecified; R10.13 Epigastric pain
CPT/HCPCS: 36415; 71046; 74177; 76705; 80053; 81001; 83690; 84484; 85025; 87086; 87631; 93005; 96360; 96374; 96375; 96376; 99285; G0378; J1170; J2270; J2405; J2550

== ENCOUNTER 2019-11-14 18:19 | Emergency (ER) | payer MEDICAID ==
--- NOTE | 2019-11-14 18:20 | ERPHSYRPT ---
- History of Present Illness Time Seen by Provider: 11/14/19 18:20 Historian: patient Exam Limitations: no limitations Physician History: Is a 49-year-old overweight white female who ate Filipino food prior to arrival to this emergency department. Patient states that her first symptoms was "feeling weird". She then became sick to her stomach, nauseated and vomited sev eral times. She also had loose stools per her report. Patient states that now she aches all over. She does not have any fever. She does not have shortness of breath or chest pain. She does not have a lot of abdominal pain. Patient states she is never had anything like this before. No other individuals in the family have similar symptoms. Patient states that she was completely fine before she ate the [place]ino food prior to her arrival here in the emergency department. Timing/Duration: today, worse Quality: aching, cramping Abdominal Pain Onset Location: generalized abdomen (Mild) Severity of Pain-Max: mild Severity of Pain-Current: mild Modifying Factors: Improves With: vomiting Associated Symptoms: diarrhea, loss of appetite, nausea, vomiting, No chest pain, No fever/chills, No headache, No shortness of breath Previous symptoms: no prior history Allergies/Adverse Reactions: No Known Drug Allergies Allergy (Verified 11/14/19 18:27) Hx Influenza Vaccination/Date Given: Yes Hx Pneumococcal Vaccination/Date Given: No Travel Risk - International Travel Have you traveled outside of the country in past 3 weeks: No - Coronavirus Screening Are you exhibiting any of the following symptoms?: No Close contact with a COVID-19 positive Pt in past 14-21 Days: No - Review of Systems Constitutional: No Symptoms Eyes: No Symptoms Ears, Nose, & Throat: No Symptoms Respiratory: No Symptoms Cardiac: No Symptoms Abdominal/Gastrointestinal: Abdominal Pain (Mild diffuse), Nausea, Vomiting, Diarrhea Genitourinary Symptoms: No Symptoms Musculoskeletal: No Symptoms Skin: No Symptoms Neurological: No Symptoms Psychological: No Symptoms Endocrine: No Symptoms Hematologic/Lymphatic: No Symptoms Immunological/Allergic: No Symptoms All Other Systems: Reviewed and Negative - Past Medical History Pertinent Past Medical History: Yes Neurological History: No Pertinent History ENT History: No Pertinent History Cardiac History: Other Respiratory History: No Pertinent History Endocrine Medical History: No Pertinent History Musculoskeletal History: Arthritis GI Medical History: Gallbladder Disease, Irritable Bowel History: No Pertinent History Psycho-Social History: No Pertinent History Female Reproductive Disorders: No Pertinent History Other Medical History: gallstone - Past Surgical History Past Surgical History: Yes Neuro Surgical History: No Pertinent History Cardiac: No Pertinent History Respiratory: No Pertinent History Gastrointestinal: No Pertinent History Genitourinary: No Pertinent History Musculoskeletal: No Pertinent History, Amputation Female Surgical History: Section - Social History Smoking Status: Never smoker Exposure to second hand smoke: No Drug Use: none Patient Lives Alone: No - Nursing Vital Signs Nursing Vital Signs: Initial Vital Signs Temperature 97.2 F 11/14/19 18:19 Pulse Rate 95 H 11/14/19 18:19 Respiratory Rate 18 11/14/19 18:19 Blood Pressure 138/82 11/14/19 18:19 O2 Sat by Pulse Oximetry 99 11/14/19 18:19 Pain Scale Pain Intensity 5 - Physical Exam General Appearance: mild distress, alert, anxiety, obese Eye Exam: PERRL/EOMI, eyes nml inspection Ears, Nose, Throat Exam: normal ENT inspection, moist mucous membranes Neck Exam: normal inspection, non-tender, supple, full range of motion Respiratory Exam: normal breath sounds, lungs clear, airway intact, No chest tenderness, No respiratory distress Cardiovascular Exam: regular rate/rhythm, normal heart sounds, normal peripheral pulses Gastrointestinal/Abdomen Exam: soft, normal bowel sounds, tenderness (Mild d iffuse secondary to vomiting per her report), No guarding, No rebound Pelvic Exam: not done Rectal Exam: not done Back Exam: normal inspection, normal range of motion, No CVA tenderness, No vertebral tenderness Extremity Exam: normal inspection, normal range of motion, pelvis stable Neurologic Exam: alert, oriented x 3, cooperative, plate maker zinc II-XII nml as tested, normal mood/affect, nml cerebellar function, nml station & gait, sensation nml Skin Exam: normal color, warm, dry Lymphatic Exam: No adenopathy SpO2 Interpretation: normal O2 Delivery: Room Air - Course Nursing assessment & vital signs reviewed: Yes Ordered Tests: Active Orders 24 hr Category Date Time Status IV Insertion STAT Care 11/14/19 18:49 Active ABDOMEN AND PELVIS W/0 CONTRAS [CT] Stat Exams 11/14/19 20:11 Taken AMYLASE Stat Lab 11/14/19 18:30 Completed CBC W DIFF Stat Lab 11/14/19 18:30 Completed CMP Stat Lab 11/14/19 18:30 Completed LIPASE Stat Lab 11/14/19 18:30 Completed Lactic Acid Stat Lab 11/14/19 18:49 Completed Terrell Screen Stat Lab 11/14/19 18:30 Completed UA W/RFX UR CULTURE Stat Lab 11/14/19 19:59 Completed Urine Triage Profile Stat Lab 11/14/19 19:59 Completed Medication Summary Discontinued Medications Generic Name Dose Route Start Last Admin Trade Name Queenie PRN Reason Stop Dose Admin Sodium Chloride 1,000 mls @ 999 mls/hr 11/14/19 18:49 11/14/19 19:20 Sodium Chloride 0.9% 1000 Ml IV 11/14/19 19:49 999 mls/hr .Q1H1M STA Administration Sodium Chloride Confirm 11/14/19 19:16 Sodium Chloride 0.9% 1000 Ml Administered 11/14/19 19:17 Dose 1,000 mls @ ud .ROUTE .STK-MED ONE Sodium Chloride 1,000 mls @ 999 mls/hr 11/14/19 19:31 11/14/19 20:46 Sodium Chloride 0.9% 1000 Ml IV 11/14/19 20:31 999 mls/hr .Q1H1M STA Administration Sodium Chloride Confirm 11/14/19 20:44 Sodium Chloride 0.9% 1000 Ml Administered 11/14/19 20:45 Dose 1,000 mls @ ud .ROUTE .STK-MED ONE Ondansetron HCl Confirm 11/14/19 18:36 Zofran 4 Mg/2 Ml Vial Administered 11/14/19 18:37 Dose 4 mg .ROUTE .STK-MED ONE Ondansetron HCl 4 mg 11/14/19 18:42 11/14/19 18:44 Zofran 4 Mg/2 Ml Vial IV 11/14/19 18:43 4 mg STAT ONE Administration Pantoprazole Sodium 40 mg 11/14/19 18:49 11/14/19 19:22 Protonix 40 Mg Iv IV 11/14/19 18:50 40 mg STAT ONE Administration Pantoprazole Sodium Confirm 11/14/19 19:16 Protonix 40 Mg Iv Administered 11/14/19 19:17 Dose 40 mg IV .STK-MED ONE Lab/Rad Data: Laboratory Result Diagrams 11/14/19 18:30 11/14/19 18:30 Laboratory Results 11/14/19 11/14/19 11/14/19 Range/Units 19:59 19:59 19:05 WBC (4.0-10.5) K/mm3 RBC (4.1-5.4) M/mm3 Hgb (12.0-16.0) gm/dl Hct (35-47) % MCV (78-100) fl MCH (26-32) pg MCHC (32-36) g/dl RDW (11.5-14.0) % Plt Count (150-450) K/mm3 MPV (7.5-11.0) fl Gran % (36.0-66.0) % Eos # (Auto) (0-0.5) Absolute Lymphs (auto) (1.0-4.6) Absolute Monos (auto) (0.0-1.3) Lymphocytes % (24.0-44.0) % Monocytes % (0.0-12.0) % Eosinophils % (0.00-5.0) % Basophils % (0.0-0.4) % Absolute Granulocytes (1.4-6.9) Basophils # (0-0.4) Sodium (137-145) mmol/L Potassium (3.5-5.1) mmol/L Chloride (98-107) mmol/L Carbon Dioxide (22-30) mmol/L Anion Gap (5-15) MEQ/L BUN (7-17) mg/dL Creatinine (0.52-1.04) mg/dL Estimated GFR ML/MIN Glucose (74-106) mg/dL Lactic Acid (0.4-2.0) Calcium (8.4-10.2) mg/dL Total Bilirubin (0.2-1.3) mg/dL AST (14-36) U/L ALT (0-35) U/L Alkaline Phosphatase (38-126) U/L Serum Total Protein (6.3-8.2) g/dL Albumin (3.5-5.0) g/dL Amylase (30-110) U/L Lipase (23-300) U/L Urine Color YELLOW (YELLOW) Urine Appearance CLEAR (CLEAR) Urine pH 5.0 (5-6) Ur Specific Alloway 1.025 (1.005-1.025) Urine Protein NEGATIVE (Negative) Urine Ketones NEGATIVE (NEGATIVE) Urine Blood NEGATIVE (0-5) Hayden/ul Urine Nitrite NEGATIVE (NEGATIVE) Urine Bilirubin NEGATIVE (NEGATIVE) Urine Urobilinogen 2 (0-1) mg/dL Ur Leukocyte Esterase NEGATIVE (NEGATIVE) Urine WBC (Auto) NONE (0-5) /HPF Urine RBC (Auto) NONE (0-2) /HPF U Epithel Cells (Auto) NONE (FEW) /HPF Urine Bacteria (Auto) NONE SEEN (NEGATIVE) /HPF Urine Mucus (Auto) SLIGHT (NEGATIVE) /HPF Urine Culture Reflexed NO (NO) Urine Glucose NEGATIVE (NEGATIVE) mg/dL Urine Opiates Level NEGATIVE (NEGATIVE) Ur Methadone NEGATIVE (NEGATIVE) Urine Barbiturates NEGATIVE (NEGATIVE) Ur Phencyclidine (PCP) NEGATIVE (NEGATIVE) Urine Amphetamine NEGATIVE (NEGATIVE) U Benzodiazepine Level NEGATIVE (NEGATIVE) Urine Cocaine NEGATIVE (NEGATIVE) Urine Marijuana (THC) NEGATIVE (NEGATIVE) Monoscreen (Negative) Influenza Type A Ag NEGATIVE (NEGATIVE) Influenza Type B Ag NEGATIVE (NEGATIVE) RSV (PCR) NEGATIVE (Negative) 11/14/19 11/14/19 11/14/19 Range/Units 18:49 18:30 18:30 WBC (4.0-10.5) K/mm3 RBC (4.1-5.4) M/mm3 Hgb (12.0-16.0) gm/dl Hct (35-47) % MCV (78-100) fl MCH (26-32) pg MCHC (32-36) g/dl RDW (11.5-14.0) % Plt Count (150-450) K/mm3 MPV (7.5-11.0) fl Gran % (36.0-66.0) % Eos # (Auto) (0-0.5) Absolute Lymphs (auto) (1.0-4.6) Absolute Monos (auto) (0.0-1.3) Lymphocytes % (24.0-44.0) % Monocytes % (0.0-12.0) % Eosinophils % (0.00-5.0) % Basophils % (0.0-0.4) % Absolute Granulocytes (1.4-6.9) Basophils # (0-0.4) Sodium 136 L (137-145) mmol/L Potassium 3.9 (3.5-5.1) mmol/L Chloride 98 (98-107) mmol/L Carbon Dioxide 30 (22-30) mmol/L Anion Gap 11.2 (5-15) MEQ/L BUN 13 (7-17) mg/dL Creatinine 0.58 (0.52-1.04) mg/dL Estimated GFR > 60.0 ML/MIN Glucose 121 H (74-106) mg/dL Lactic Acid 2.0 (0.4-2.0) Calcium 9.8 (8.4-10.2) mg/dL Total Bilirubin 0.80 (0.2-1.3) mg/dL AST 28 (14-36) U/L ALT 17 (0-35) U/L Alkaline Phosphatase 98 (38-126) U/L Serum Total Protein 8.3 H (6.3-8.2) g/dL Albumin 4.4 (3.5-5.0) g/dL Amylase 56 (30-110) U/L Lipase 36 (23-300) U/L Urine Color (YELLOW) Urine Appearance (CLEAR) Urine pH (5-6) Ur Specific [place]ay (1.005-1.025) Urine Protein (Negative) Urine Ketones (NEGATIVE) Urine Blood (0-5) Hayden/ul Urine Nitrite (NEGATIVE) Urine Bilirubin (NEGATIVE) Urine Urobilinogen (0-1) mg/dL Ur Leukocyte Esterase (NEGATIVE) Urine WBC (Auto) (0-5) /HPF Urine RBC (Auto) (0-2) /HPF U Epithel Cells (Auto) (FEW) /HPF Urine Bacteria (Auto) (NEGATIVE) /HPF Urine Mucus (Auto) (NEGATIVE) /HPF Urine Culture Reflexed (NO) Urine Glucose (NEGATIVE) mg/dL Urine Opiates Level (NEGATIVE) Ur Methadone (NEGATIVE) Urine Barbiturates (NEGATIVE) Ur Phencyclidine (PCP) (NEGATIVE) Urine Amphetamine (NEGATIVE) U Benzodiazepine Level (NEGATIVE) Urine Cocaine (NEGATIVE) Urine Marijuana (THC) (NEGATIVE) Monoscreen NEGATIVE (Negative) Influenza Type A Ag (NEGATIVE) Influenza Type B Ag (NEGATIVE) RSV (PCR) (Negative) 11/14/19 Range/Units 18:30 WBC 13.0 H (4.0-10.5) K/mm3 RBC 4.63 (4.1-5.4) M/mm3 Hgb 13.8 (12.0-16.0) gm/dl Hct 41.9 (35-47) % MCV 90.5 (78-100) fl MCH 29.8 (26-32) pg MCHC 32.9 (32-36) g/dl RDW 13.4 (11.5-14.0) % Plt Count 333 (150-450) K/mm3 MPV 8.7 (7.5-11.0) fl Gran % 62.6 (36.0-66.0) % Eos # (Auto) 0.30 (0-0.5) Absolute Lymphs (auto) 3.79 (1.0-4.6) Absolute Monos (auto) 0.74 (0.0-1.3) Lymphocytes % 29.1 (24.0-44.0) % Monocytes % 5.7 (0.0-12.0) % Eosinophils % 2.3 (0.00-5.0) % Basophils % 0.3 (0.0-0.4) % Absolute Granulocytes 8.14 H (1.4-6.9) Basophils # 0.04 (0-0.4) Sodium (137-145) mmol/L Potassium (3.5-5.1) mmol/L Chloride (98-107) mmol/L Carbon Dioxide (22-30) mmol/L Anion Gap (5-15) MEQ/L BUN (7-17) mg/dL Creatinine (0.52-1.04) mg/dL Estimated GFR ML/MIN Glucose (74-106) mg/dL Lactic Acid (0.4-2.0) Calcium (8.4-10.2) mg/dL Total Bilirubin (0.2-1.3) mg/dL AST (14-36) U/L ALT (0-35) U/L Alkaline Phosphatase (38-126) U/L Serum Total Protein (6.3-8.2) g/dL Albumin (3.5-5.0) g/dL Amylase (30-110) U/L Lipase (23-300) U/L Urine Color (YELLOW) Urine Appearance (CLEAR) Urine pH (5-6) Ur Specific [place] (1.005-1.025) Urine Protein (Negative) Urine Ketones (NEGATIVE) Urine Blood (0-5) Hayden/ul Urine Nitrite (NEGATIVE) Urine Bilirubin (NEGATIVE) Urine Urobilinogen (0-1) mg/dL Ur Leukocyte Esterase (NEGATIVE) Urine WBC (Auto) (0-5) /HPF Urine RBC (Auto) (0-2) /HPF U Epithel Cells (Auto) (FEW) /HPF Urine Bacteria (Auto) (NEGATIVE) /HPF Urine Mucus (Auto) (NEGATIVE) /HPF Urine Culture Reflexed (NO) Urine Glucose (NEGATIVE) mg/dL Urine Opiates Level (NEGATIVE) Ur Methadone (NEGATIVE) Urine Barbiturates (NEGATIVE) Ur Phencyclidine (PCP) (NEGATIVE) Urine Amphetamine (NEGATIVE) U Benzodiazepine Level (NEGATIVE) Urine Cocaine (NEGATIVE) Urine Marijuana (THC) (NEGATIVE) Monoscreen (Negative) Influenza Type A Ag (NEGATIVE) Influenza Type B Ag (NEGATIVE) RSV (PCR) (Negative) - Progress Progress: improved, re-examined Progress Note: 11/14/19 21:05 CAT scan of the abdomen and pelvis read by the radiologist states that the appendix is not seen. There are a few left mid abdomen small mesenteric nodes with stranding favoring adenitis. There are no other acute emergent intra- abdominal abnormalities. Clinically, the patient states she is feeling better but is not quite back to normal. She would like to try some clear liquids/popsicles. She currently denies significant abdominal pain or chest pain. She is not shaking like she was prior to her evaluation here in the emergency department. Counseled pt/family regarding: lab results, diagnosis, need for follow-up, rad results - Departure Departure Disposition: Home Clinical Impression: Nausea & vomiting, Diarrhea, Mesenteric adenitis Condition: Stable Critical Care Time: No Referrals: [facility] [Primary Care Provider] - Additional Instructions: Continue clear liquid diet as discussed for the next 12 to 24 hours. Do not advance your diet until you are taking in and tolerating clear liquids well. Return to the emergency department if your symptoms worsen. Follow-up with your primary care physician if your symptoms persist Prescriptions: Ondansetron ODT 4 MG [Zofran Odt 4 mg] 4 mg PO Q6H PRN PRN #10 tab.rapdis PRN Reason: Vomiting
[2019-11-14] MEDS ORDERED: Zofran 4 MG/2 ML VIAL ONE (18:36)
[2019-11-14] MEDS ORDERED: Zofran 4 MG/2 ML VIAL IV ONE (18:42)
[2019-11-14] MEDS ORDERED: Sodium Chloride 0.9% 1000 ML 1,000 ML IV STA ×2 (18:49→19:31)
[2019-11-14] MEDS ORDERED: PROTONIX 40 MG IV IV ONE ×2 (18:49→19:16)
[2019-11-14 18:58] LABS: Absolute Neutrophil Ct (ANC) 8.14 (1.4-6.9); BASOPHIL % 0.3 % (0.0-0.4); Basophil (Absolute #) 0.04 (0-0.4); Eosinophil % 2.3 % (0.00-5.0); Hematocrit 41.9 % (35-47); Hemoglobin 13.8 gm/dl (12.0-16.0); Lymphocyte (Absolute #) 3.79 (1.0-4.6); Lymphocytes % 29.1 % (24.0-44.0); Mean Cell Volume 90.5 fl (78-100); Mean Corpuscular Hemoglobin 29.8 pg (26-32); Mean Corpuscular Hgb Concent. 32.9 g/dl (32-36); Mean Platelet Volume 8.7 fl (7.5-11.0); Monocyte (Absolute #) 0.74 (0.0-1.3); Monocytes % 5.7 % (0.0-12.0); Neutrophil % 62.6 % (36.0-66.0); Platelet Count 333 K/mm3 (150-450); Red Blood Count 4.63 M/mm3 (4.1-5.4); Red Cell Distribution Width 13.4 % (11.5-14.0)
[2019-11-14 19:04] LABS: ALBUMIN 4.4 g/dL (3.5-5.0); ALKALINE PHOSPHATASE 98 U/L (38-126); AMYLASE 56 U/L (30-110); ANION GAP 11.2 MEQ/L (5-15); BLOOD UREA NITROGEN 13 mg/dL (7-17); CHLORIDE 98 mmol/L (98-107); Calcium 9.8 mg/dL (8.4-10.2); Carbon Dioxide 30 mmol/L (22-30); Creatinine 1 0.58 mg/dL (0.52-1.04); EST GLOMERULAR FILTRATION RATE > 60.0 ML/MIN; Glucose 121 mg/dL (74-106); LIPASE 36 U/L (23-300); Potassium 3.9 mmol/L (3.5-5.1); SGOT/AST 28 U/L (14-36); SGPT/ALT 17 U/L (0-35); SODIUM 136 mmol/L (137-145); Total Protein 8.3 g/dL (6.3-8.2)
[2019-11-14] MEDS ORDERED: Sodium Chloride 0.9% 1000 ML 1,000 ML ONE ×2 (19:16→20:44)
[2019-11-14 19:45] LABS: INFLUENZA A NEGATIVE (NEGATIVE); INFLUENZA B NEGATIVE (NEGATIVE); RESPIRATORY SYNCTIAL VIRUS NEGATIVE (Negative)
[2019-11-14 20:07] LABS: Appearance CLEAR (CLEAR); Bilirubin NEGATIVE (NEGATIVE); Blood NEGATIVE Ery/ul (0-5); Glucose NEGATIVE (NEGATIVE); Ketones NEGATIVE (NEGATIVE); Leukocyte Esterase NEGATIVE (NEGATIVE); Mucus SLIGHT /HPF (NEGATIVE); Nitrite NEGATIVE (NEGATIVE); Protein,Urine Dip NEGATIVE (Negative); Specific Gravity 1.025 (1.005-1.025); Urobilinogen 2 mg/dL (0-1)
[2019-11-14 20:08] LABS: Bacteria NONE SEEN /HPF (NEGATIVE)
[2019-11-14 20:18] LABS: Amphetamine,Urine NEGATIVE (NEGATIVE); Barbiturate,Urine NEGATIVE (NEGATIVE); Benzodiazepine,Urine NEGATIVE (NEGATIVE); Cocaine,Urine NEGATIVE (NEGATIVE); Methadone,Urine NEGATIVE (NEGATIVE); Opiate,Urine NEGATIVE (NEGATIVE); PCP,Urine NEGATIVE (NEGATIVE); THC,Urine NEGATIVE (NEGATIVE)
[2019-11-14 22:27] VITALS: BP 135/76; PULSE 90; O2SAT 99
--- NOTE | 2019-11-15 09:44 | XRAY ---
Exam: CT of the abdomen and pelvis without IV contrast from 11/14/2019. CTDI: 12.83 mGy Comparison: CT of the abdomen and pelvis with IV contrast from 04/05/2019. Indication: Abdominal pain; nausea/vomiting/diarrhea; mildly elevated white blood cell count of 13,000. Technique: Non-IV contrast axial images were obtained through the abdomen and pelvis. Reconstructed coronal and sagittal images were created and reviewed. Findings: The visualized lung bases appear clear. Assessment of the solid organs is limited on a non-IV contrast study. The right lobe of the liver appears prominent measuring 20.5 mm year is in greatest craniocaudal dimension on coronal image #58. This is relatively similar to 04/05/2019. This could be due to a Daylin's lobe or mild hepatomegaly. A tiny calcified granuloma is seen within the inferior portion of the right lobe. The gallbladder is distended and reveals no dense calcifications within it. No intrahepatic biliary duct distention is seen. Some scattered calcified splenic granulomas are seen. The spleen is of normal size without mass. The pancreas, adrenal glands, and kidneys appear unremarkable. No renal calculi or hydronephrosis is seen. No ureteral distention or calculi are seen. The abdominal aorta reveals no evidence of aneurysm. A few shotty periaortic lymph nodes are seen representing no significant change. I again note some scattered mildly prominent mesenteric lymph nodes within the central and left midabdomen with mildly increased stranding and mesenteric fat density. 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 No abnormal fluid collection is seen. There is no free intraperitoneal air or ventral abdominal wall hernia. The appendix is not definitely seen within the right lower quadrant, but no findings to suggest appendicitis are seen. A few small scattered mesenteric lymph nodes are seen within the right hemiabdomen as well, the largest measuring about 12 mm in diameter on coronal image #60. The bowel appears nonobstructed. No definite bowel wall thickening is seen. I believe there is some mild scattered diverticulosis within the colon. No findings of diverticulitis are seen. The uterus is anteflexed and appears enlarged measuring about 13.4 cm in length and 6.65 cm in AP dimension on midline sagittal image #118. I don't believe this represents a significant change. The ovaries appeared grossly unremarkable, except for perhaps a dominant follicle or small cyst within the right ovary measuring about 1.7 cm in diameter on axial image #56. No enlarged pelvic lymph nodes or free intraperitoneal fluid is seen. The urinary bladder is distended and appears grossly unremarkable. Some postinflammatory lymph nodes are seen within each groin representing no significant change. The skeleton reveals no acute fracture or aggressive bone lesion. A slight S-shaped scoliosis is again seen with slight convexity of the spine toward the right at about T12 and slight convexity of the lower lumbar spine toward the left at L4-L5. Impression: 1. I again note some scattered small bilateral mesenteric lymph nodes with fat stranding and mild increased density of the mesenteric fat within the central and left hemiabdomen. 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 I believe this is relatively similar to 04/05/2019. 2. The appendix is not definitely seen within the right lower quadrant, but I see no secondary findings to suggest acute appendicitis. 3. There appears to be some scattered colonic diverticulosis, but no evidence of diverticulitis. 4. Enlarged anteflexed uterus is again seen representing no change from 04/05/2019. There may be a small 1.7 cm in diameter dominant follicle or cyst within the right ovary on axial image #56. A slightly larger 2.2 cm in diameter right ovarian cyst was seen on the prior CT. 5. Prominent Daylin's lobe versus mild hepatomegaly. I don't believe this represents a significant change. 6. Mild old healed granulomatous disease. 7. No other acute process is seen within the abdomen or pelvis. There is no free air or free fluid. The bowel is nonobstructed..
== END 2019-11-14 22:28 | disposition home or self-care (01) ==
LOC: ED 18:19
DX: R11.2 Nausea with vomiting, unspecified (principal); I88.0 Nonspecific mesenteric lymphadenitis
CPT/HCPCS: 36000; 36415; 74176; 80053; 80307; 81001; 82150; 83605; 83690; 85025; 86308; 87631; 96360; 96361; 96374; 96375; 99284; J2405